=== PATIENT | male | born 1940 | race Caucasian/White ===

== ENCOUNTER 2017-10-18 10:06 | Emergency (ER) | payer MEDICAID, MEDICARE, OTHER ==
[~2017-10-18] VITALS: Ht 175.3 cm; Wt 77.7 kg
[~2017-10-18 10:06] MED LIST: ARIC10TA PO; BUSP30TA PO; CARB200T; DIAZ2 PO; DILA100C PO; GALA24CA PO; LITH150C7 PO; QUET-87 PO; QUET1TAB10 PO; SERO400T3 OR; TAMS0.4C67 PO; VENL75TA2 PO
[2017-10-18 10:21] VITALS: BP 124/59; PULSE 90; RESP 20; TEMP 98; O2SAT 95
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
== END 2017-10-18 11:15 | disposition home or self-care (01) ==
LOC: PHED 10:06 → PHEFT 11:15
DX: Z09 Encounter for follow-up examination after completed treatment for conditions other than malignant neoplasm (principal); Z48.02 Encounter for removal of sutures
CPT/HCPCS: 99281